=== PATIENT | female | born 1985 | race Caucasian/White ===

== ENCOUNTER → 2025-03-07 | Outpatient (CLI) | payer OTHER | END | disposition home or self-care (01) | LOC: LAB SHORT 11:46 → LAB 11:46 | DX: O09.90 Supervision of high risk pregnancy, unspecified, unspecified trimester (principal) | CPT/HCPCS: 87081; 87150 ==

== ENCOUNTER 2025-03-23 11:47 | Inpatient (IN) | payer OTHER ==
[2025-03-23] VITALS (10 sets, daily range): BP systolic 106–134; BP diastolic 52–85
[2025-03-23] MEDS ORDERED: FentaNYL Citrate 50 MCG/ML 2 ML Injection IV PRN (12:10)
[2025-03-23] MEDS ORDERED: Ondansetron HCl 2 MG / ML 2ML Vial IV PRN (12:10)
[2025-03-23] MEDS ORDERED: Carboprost Tromethamine 250 MCG/ML 1ML Amp IM PRN ×2 (12:10→15:15)
[2025-03-23] MEDS ORDERED: Acetaminophen 500 MG Tab PO PRN ×2 (12:10→15:15)
[2025-03-23] MEDS ORDERED: Tranexamic Acid 100 ML IV SCH (12:10)
[2025-03-23] MEDS ORDERED: OXYTOCIN/RINGER'S LACTATE 500 ML IV PRN (12:10)
[2025-03-23] MEDS ORDERED: Oxytocin 10 Unit / ML Vial IM PRN (12:10)
[2025-03-23] MEDS ORDERED: Lactated Ringer's 1,000 ML IV PRN ×3 (12:10→12:15)
[2025-03-23] MEDS ORDERED: Misoprostol 200 MCG Tab PR PRN ×2 (12:10→15:10)
[2025-03-23] MEDS ORDERED: Methylergonovine Maleate 0.2MG / ML 1ML Amp IM PRN ×2 (12:10→15:10)
[2025-03-23] MEDS ORDERED: Misoprostol 200 MCG Tab BC PRN (12:10)
[2025-03-23] MEDS ORDERED: Calcium Carbonate 500 MG Tab Chew PO PRN (12:15)
[2025-03-23] MEDS ORDERED: FentaNYL 2mcg/ml-Bup 0.1% Epd 250 ML EPI PRN (12:15)
[2025-03-23] MEDS ORDERED: ePHEDrine Sulfate 50 MG/ML 1ML Injection XX PRN (12:15)
[2025-03-23 13:27] LABS: BASOPHILS ABSOLUTE AUTO 0.06 K/mm3 (0.00-0.23); BASOPHILS PERCENT AUTO 0 % (0-2); EOSINOPHILS ABSOLUTE AUTO 0.12 K/mm3 (0.00-0.68); EOSINOPHILS PERCENT AUTO 1 % (0-6); Hematocrit 40.1 % (33.0-51.0); Hemoglobin 13.3 g/dL (11.5-16.0); IMMATURE GRAN ABSOLUTE AUTO 0.23 K/mm3 (0.00-0.10); IMMATURE GRAN PERCENT AUTO 2 % (0-1); LYMPHOCYTES PERCENT AUTO 12 % (21-46); MONOCYTES ABSOLUTE AUTO 1.17 K/mm3 (0.16-1.47); MONOCYTES PERCENT AUTO 7 % (4-13); Mean Corpuscular HGB 28.2 pg (26.0-34.0); Mean Corpuscular HGB Conc 33.2 g/dL (31.5-36.5); Mean Corpuscular Volume 85 fL (80-100); Mean Platelet Volume 10.5 fL (9.1-12.4); NEUTROPHILS ABSOLUTE AUTO 12.33 K/mm3 (1.96-9.15); NEUTROPHILS PERCENT AUTO 78 % (41-73); Platelet Count 237 K/mm3 (150-400); RDW Coefficient Variation 13.8 % (11.7-14.2); RDW Standard Deviation 42.7 fL (35.1-46.3); Red Blood Cell Count 4.72 M/mm3 (3.80-5.20); White Blood Cell Count 15.71 K/mm3 (4.00-11.30)
[2025-03-23 15:08] LABS: PCO2 Cord - Venous 38.1 mmHg (40-50); PO2 Cord - Venous 39.5 mmHg (28-32); pH Umbilical Cord - Venous 7.32 (7.26-7.35)
[2025-03-23] MEDS ORDERED: Oxytocin 10 Unit / ML Vial IM ONE (15:10)
[2025-03-23] MEDS ORDERED: Lanolin Cream TOP PRN (15:10)
[2025-03-23] MEDS ORDERED: Benzocaine Topical Anesthetic Spray 60GM TOP PRN (15:15)
[2025-03-23] MEDS ORDERED: Ketorolac Tromethamine 30mg Vial IV PRN (15:15)
[2025-03-23] MEDS ORDERED: Docusate Sodium 100 MG Cap PO PRN (15:15)
[2025-03-23] MEDS ORDERED: OXYTOCIN/RINGER'S LACTATE 500 ML IV SCH (15:15)
[2025-03-23] MEDS ORDERED: Lactated Ringer's 1,000 ML IV SCH (15:20)
[2025-03-23] MEDS ORDERED: Witch Hazel/Glycerin PADS TOP PRN (15:20)
[2025-03-24 03:30] VITALS: BP 108/68
[2025-03-24] MEDS ORDERED: Ibuprofen 400 MG Tab PO PRN (05:00)
[2025-03-24 07:12] VITALS: BP 100/49
[2025-03-24] MEDS ORDERED: Prenatal Vit/FE Fumarate/FA 1 Tab PO SCH (09:00)
[2025-03-24 12:30] VITALS: BP 132/70
[2025-03-24 16:00] VITALS: BP 128/78
== END 2025-03-24 15:55 | disposition home or self-care (01) | DRG 807 ==
LOC: OBS 11:47 → BC 11:47 → OBS 12:01 → BC 12:02
PROVIDERS: ADMIT Advanced Practice Midwife
PROC: 10E0XZZ Delivery of Products of Conception, External Approach (ICD-10-PCS; principal; 2025-03-23)
PROC: 0HQ9XZZ Repair Perineum Skin, External Approach (ICD-10-PCS; 2025-03-23)
PROC: 10907ZC Drainage of Amniotic Fluid, Therapeutic from Products of Conception, Via Natural or Artificial Opening (ICD-10-PCS; 2025-03-23)
PROC: 4A1HXCZ Monitoring of Products of Conception, Cardiac Rate, External Approach (ICD-10-PCS; 2025-03-23)
DX: O99.344 Other mental disorders complicating childbirth (principal); Z37.0 Single live birth; Z3A.39 39 weeks gestation of pregnancy; O77.0 Labor and delivery complicated by meconium in amniotic fluid; O69.81X0 Labor and delivery complicated by cord around neck, without compression, not applicable or unspecified; O70.0 First degree perineal laceration during delivery; F41.9 Anxiety disorder, unspecified; F90.9 Attention-deficit hyperactivity disorder, unspecified type; F32.A Depression, unspecified; Z88.7 Allergy status to serum and vaccine; Z88.0 Allergy status to penicillin; Z88.2 Allergy status to sulfonamides; Z63.0 Problems in relationship with spouse or partner
CPT/HCPCS: 36415; 82803; 85025; 86850; 86900; 86901; A9270; J1885; J2590

== ENCOUNTER → 2025-05-10 | Outpatient (CLI) | payer OTHER ==
[2025-05-10 14:16] LABS: Candida Group, PCR NOT DETECTED (NOT DETECT); Candida glabrata-krusei, PCR NOT DETECTED (NOT DETECT)
[2025-05-10 14:17] LABS: Bacterial Vaginosis PCR Positive (NEGATIVE)
== END | disposition home or self-care (01) ==
LOC: LAB 10:24 → LAB SHORT 10:24
PROVIDERS: Advanced Practice Midwife
DX: N76.0 Acute vaginitis (principal)
CPT/HCPCS: 81515

== ENCOUNTER → 2025-05-18 | Outpatient (CLI) | payer OTHER | LOC: LAB SHORT 12:48 → LAB 12:48 | PROVIDERS: Student in an Organized Health Care Education/Training Program | DX: B37.31 Acute candidiasis of vulva and vagina (principal) | CPT/HCPCS: 87481; 87661; 87801 ==